=== PATIENT | male | born 1965 | race Caucasian/White ===

== ENCOUNTER 2017-06-20 23:05 | Emergency (ER) | payer OTHER | END 2017-06-20 23:09 | disposition left against medical advice (07) | LOC: ER 23:05 | DX: S69.91XA Unspecified injury of right wrist, hand and finger(s), initial encounter (principal); Z53.21 Procedure and treatment not carried out due to patient leaving prior to being seen by health care provider; X58.XXXA Exposure to other specified factors, initial encounter; Y93.89 Activity, other specified; Y99.8 Other external cause status; Y92.89 Other specified places as the place of occurrence of the external cause ==

== ENCOUNTER 2017-06-21 17:22 | Emergency (ER) | payer OTHER ==
--- NOTE | 2017-06-21 20:01 | PHYS DOC ---
Past History Past Medical History: CAD, Hypertension Past Surgical History: No Surgical History Alcohol Use: None Drug Use: None Adult General Chief Complaint Chief Complaint: LACERATION/AVULSION HPI HPI 52-year-old male currently in [facility] on suicide watch somehow was able to get a razor and caused a laceration to his left forearm last night and then multiple lacerations to his right forearm today. Patient denies drug use overdose or other self injury. Denies homicidal ideation. No other complaints. Patient is able to move and use his arms and wrist normally. Wounds are not contaminated. Review of Systems Review of Systems Constitutional: Denies fever or chills [] Eyes: Denies change in visual acuity, redness, or eye pain [] HENT: Denies nasal congestion or sore throat [] Respiratory: Denies cough or shortness of breath [] Cardiovascular: No additional information not addressed in HPI [] GI: Denies abdominal pain, nausea, vomiting, bloody stools or diarrhea [] : Denies dysuria or hematuria [] Musculoskeletal: Denies back pain or joint pain [] Integument: Denies rash or skin lesions [] Neurologic: Denies headache, focal weakness or sensory changes [] Endocrine: Denies polyuria or polydipsia [] All other systems were reviewed and found to be within normal limits, except as documented in this note. Physical Exam Physical Exam Well-appearing patient no acute distress patient smiling alert cheerful communicative and appropriate. He has several superficial and subcutaneous transverse wounds mid and distal forearm. They're not grossly contaminated. Wounds into the subcutaneous fat only no muscle or tendon involvement. Wounds are hemostatic. 5 cm left forearm wound from last night hemostatic also with DrWillie gross contamination and no muscle or tendon involvement Constitutional: Well developed, well nourished, no acute distress, non-toxic appearance. [] HENT: Normocephalic, atraumatic, bilateral external ears normal, oropharynx moist, no oral exudates, nose normal. [] Eyes: PERRLA, EOMI, conjunctiva normal, no discharge. [] Neck: Normal range of motion, no tenderness, supple, no stridor. [] Cardiovascular:Heart rate regular rhythm, no murmur [] Lungs & Thorax: Bilateral breath sounds clear to auscultation [] Abdomen: Bowel sounds normal, soft, no tenderness, no masses, no pulsatile masses. [] Skin: Warm, dry, no erythema, no rash. [] Back: No tenderness, no CVA tenderness. [] Extremities: No tenderness, no cyanosis, no clubbing, ROM intact, no edema. [] Neurologic: Alert and oriented X 3, normal motor function, normal sensory function, no focal deficits noted. [] Psychologic: Affect normal, judgement normal, mood normal. [] Current Patient Data Vital Signs Vital Signs Date Time Temp Pulse Resp B/P (MAP) Pulse Ox O2 Delivery O2 Flow Rate FiO2 06/21/17 17:42 98.1 67 16 97 EKG EKG [] Radiology/Procedures Radiology/Procedures [] Course & Med Decision Making Course & Med Decision Making Pertinent Labs and Imaging studies reviewed. (See chart for details) Procedure: Steri-Strip repair of superficial and subcutaneous right forearm wounds total wound length 15 cm and left forearm total wound length for half centimeters. Wounds irrigated extensively sterile water. Benzoin and Steri- Strips applied with good approximation. Patient tolerated well without complication. Sterile wrapping applied Patient with multiple superficial wounds. Tetanus up-to-date. Wounds irrigated and Steri-Strip repair is performed. Patient tolerated well without complication. Wounds are hemostatic no evidence of cellulitis or infection. No further workup or treatment is indicated at this time. Patient is on suicide watch at the [facility] and will follow-up with medical care at the [facility]. Strict return precautions given [] Dragon Disclaimer Dragon Disclaimer This electronic medical record was generated, in whole or in part, using a voice recognition dictation system. Departure Departure: Impression: Primary Impression: Lacerations of multiple sites of right arm Additional Impressions: Multiple lacerations Self-inflicted injury Referrals: PCP,NO (PCP) Additional Instructions: Mr. light wounds have been repaired with Steri-Strips. Keep clean dressing in place to exclude durable wounds heal. Follow-up with his doctor or [facility] medical services tomorrow for wound recheck. Continue on suicide watch as patient has previously been with follow-up with [facility] medical services and psychiatric services. Problem Qualifiers ODILON CABEZAS MD Jun 21, 2017 20:01
[2017-06-21 20:16] VITALS: BP 101/59
== END 2017-06-21 20:16 | disposition home or self-care (01) ==
LOC: ER 17:22
DX: S51.811A Laceration without foreign body of right forearm, initial encounter (principal); S51.812A Laceration without foreign body of left forearm, initial encounter; I10 Essential (primary) hypertension; I25.10 Atherosclerotic heart disease of native coronary artery without angina pectoris; X78.8XXA Intentional self-harm by other sharp object, initial encounter; Y93.89 Activity, other specified; Y99.8 Other external cause status; Y92.149 Unspecified place in prison as the place of occurrence of the external cause
CPT/HCPCS: 99283